=== PATIENT | female | born 1935 | race Caucasian/White ===

== ENCOUNTER 2020-01-17 21:22 | Inpatient (IN) | payer OTHER, MEDICAID ==
[~2020-01-17] VITALS: Ht 165.1 cm; Wt 55.3 kg
[2020-01-17 21:26] VITALS: BP_SYST 118
[2020-01-17] MEDS ORDERED: NACL 0.9% 1,000 ML IV ONE (21:27)
[2020-01-17] MEDS ORDERED: LACT10SO6 PO (21:40)
[2020-01-17] MEDS ORDERED: BRI.2% EACH EYE (21:41)
[2020-01-17] MEDS ORDERED: SPIR25TA6 PO (21:41)
[2020-01-17] MEDS ORDERED: DIGO250T78 PO (21:43)
[2020-01-17] MEDS ORDERED: HYDR100T25 PO (21:44)
[2020-01-17] MEDS ORDERED: CARV25TA55 PO (21:45)
[2020-01-17] MEDS ORDERED: LISI-600 PO (21:46)
[2020-01-17] MEDS ORDERED: APIX2.5T PO (21:49)
[2020-01-17] MEDS ORDERED: OMEP20CA11 PO (21:55)
[2020-01-17] MEDS ORDERED: BISA10SU61 RC (21:56)
[2020-01-17 22:02] LABS: BASOPHILS # (AUTO) 0.1 K/uL (0.0-0.2); BASOPHILS % (AUTO) 0.9 % (0.0-2.0); EOSINOPHILS # (AUTO) 0.1 K/uL (0.0-0.4); EOSINOPHILS % (AUTO) 1.3 % (0.0-4.0); HEMATOCRIT 34.9 % (36-48); HEMOGLOBIN 11.6 g/dL (12.0-16.0); LYMPHOCYTES # (AUTO) 1.4 K/uL (1.0-5.5); LYMPHOCYTES % (AUTO) 15.8 % (20.5-51.5); MEAN CORPUSCULAR HEMOGLOBIN 31 pg (27-31); MEAN CORPUSCULAR HGB CONC 33 % (32-36); MEAN CORPUSCULAR VOLUME 93 fL (79.0-98.0); MONOCYTES # (AUTO) 0.5 K/uL (0.0-1.0); MONOCYTES % (AUTO) 5.6 % (1.7-9.3); NEUTROPHILS # (AUTO) 6.7 K/uL (1.8-7.7); NEUTROPHILS % (AUTO) 76.4 % (40.0-70.0); PLATELET COUNT (AUTO) 335 K/uL (130-430); RED BLOOD CELL COUNT(AUTO) 3.75 MIL/uL (4.2-6.2); RED CELL DISTRIBUTION WIDTH 15.7 % (9.0-15.0); WHITE BLOOD COUNT (AUTO) 8.8 K/uL (4.8-10.8)
[2020-01-17] MEDS ORDERED: MOM PO (22:04)
[2020-01-17 22:16] LABS: ANION GAP 9 (5-15); CALCIUM 8.6 mg/dL (8.4-11.0); CHLORIDE 115 mmol/L (98-107); CREATININE 2.65 mg/dL (0.55-1.30); GLUCOSE 103 mg/dL (70-99); POTASSIUM 3.4 mmol/L (3.5-5.1); SODIUM SERUM 144 mmol/L (136-145); UREA NITROGEN, BLOOD 97 mg/dL (8-21)
[2020-01-17 22:17] LABS: INR 1.1 (0.8-1.2); PROTHROMBIN TIME 11.5 SECS (9.5-12.5)
[2020-01-17 22:20] LABS: ALANINE AMINOTRANSFERASE 22 U/L (12-78); ALBUMIN 2.7 g/dL (3.4-4.8); ASPARTATE AMINOTRANSFERASE 27 U/L (10-37); LIPASE 154 U/L (73-393); TOTAL BILIRUBIN 0.7 mg/dL (0.0-1.0)
[2020-01-17 23:07] LABS: BILIRUBIN,URINE NEGATIVE (NEGATIVE); BLOOD, URINE 2+ (NEGATIVE); COLOR,URINE YELLOW (YELLOW); GLUCOSE,URINE NEGATIVE (NEGATIVE); KETONES,URINE NEGATIVE (NEGATIVE); LEUKOCYTE ESTERASE ,URINE 1+ (NEGATIVE); NITRITE, URINE NEGATIVE (NEGATIVE); PH,URINE 5.5 (5.0-8.0); PROTEIN URINE TRACE (NEGATIVE); UROBILINOGEN,URINE 0.2 (0.2-1.0)
[2020-01-17 23:15] LABS: BACTERIA,URINE MODERATE /HPF (None Seen); CLARITY/URINE HAZY (CLEAR); HYALINE CASTS, URINE 0-10 /LPF (None Seen); URINE AMORPHOUS URATE 2+ /HPF (None Seen)
[2020-01-18] MEDS ORDERED: cefTRIAXone 1 GM in D5W 50 ML IV ONE ×2
[2020-01-18] MEDS ORDERED: cefTRIAXone 1 GM IVPB PREMIX 50 ML IV ONE (00:45)
[2020-01-18] MEDS ORDERED: NACL 0.9% 1,000 ML IV ONE (05:45)
[2020-01-18 06:43] VITALS: BP_SYST 105
[2020-01-18 08:15] VITALS: BP_SYST 105
[2020-01-18] MEDS ORDERED: MILK OF MAGNESIA 30 ML UDC PO PRN (12:00)
[2020-01-18] MEDS ORDERED: BISACODYL 10 MG/SUPPOSITORY RC PRN (12:00)
[2020-01-18] MEDS ORDERED: APIXABAN 2.5 MG TABLET PO ONE (12:15)
[2020-01-18 12:39] VITALS: BP_SYST 141
[2020-01-18] MEDS: LEVOFLOXACIN 250 MG/D5W 50 ML IV SCH (13:53)
[2020-01-18] MEDS: hydrALAZINE HCL 25 MG TABLET PO SCH ×2 (15:00→21:00)
[2020-01-18] MEDS ORDERED: POTASSIUM CHLORIDE 20 MEQ/PKT PACKET PO ONE (15:15)
[2020-01-18] MEDS ORDERED: MEGESTROL ACETATE 400 MG/10 ML UDC PO ONE (15:30)
[2020-01-18] MEDS: D5NS 1,000 ML IV SCH ×2 (16:19→23:57)
[2020-01-18 16:41] VITALS: BP_SYST 112
[2020-01-18] MEDS ORDERED: LISINOPRIL 20 MG TABLET PO SCH (21:00)
[2020-01-18] MEDS: CARVEDILOL 25 MG TABLET (COREG) PO SCH (21:00)
[2020-01-18] MEDS: APIXABAN 2.5 MG TABLET PO SCH (21:00)
[2020-01-18] MEDS: BALSAM PERU/CASTOR OIL 60 GM OINT...G. TP SCH (21:56)
[2020-01-18] MEDS: BRIMONIDINE TARTRATE 0.2% 5 mL EYE DROPS EACH EYE SCH (21:57)
[2020-01-18] MEDS: cefTRIAXone 1 GM in D5W 50 ML IV SCH (23:56)
[2020-01-19 01:17] VITALS: BP_SYST 99
[2020-01-19 06:49] LABS: BASOPHILS # (AUTO) 0.1 K/uL (0.0-0.2); EOSINOPHILS # (AUTO) 0.2 K/uL (0.0-0.4); EOSINOPHILS % (AUTO) 2.3 % (0.0-4.0); HEMATOCRIT 31.6 % (36-48); HEMOGLOBIN 10.3 g/dL (12.0-16.0); LYMPHOCYTES # (AUTO) 1.1 K/uL (1.0-5.5); MEAN CORPUSCULAR HEMOGLOBIN 31 pg (27-31); MEAN CORPUSCULAR HGB CONC 33 % (32-36); MONOCYTES # (AUTO) 0.6 K/uL (0.0-1.0); MONOCYTES % (AUTO) 6.6 % (1.7-9.3); NEUTROPHILS # (AUTO) 6.4 K/uL (1.8-7.7); NEUTROPHILS % (AUTO) 77.1 % (40.0-70.0); PLATELET COUNT (AUTO) 286 K/uL (130-430); RED BLOOD CELL COUNT(AUTO) 3.33 MIL/uL (4.2-6.2); RED CELL DISTRIBUTION WIDTH 16.5 % (9.0-15.0); WHITE BLOOD COUNT (AUTO) 8.3 K/uL (4.8-10.8)
[2020-01-19 07:03] LABS: MEAN CORPUSCULAR VOLUME 94 fL (79.0-98.0)
[2020-01-19 08:33] LABS: ALANINE AMINOTRANSFERASE 19 U/L (12-78); ALBUMIN 2.4 g/dL (3.4-4.8); ANION GAP 12 (5-15); ASPARTATE AMINOTRANSFERASE 22 U/L (10-37); CREATININE 1.32 mg/dL (0.55-1.30); GLUCOSE 130 mg/dL (70-99); PHOSPHORUS 2.4 mg/dL (2.7-4.5); POTASSIUM 3.6 mmol/L (3.5-5.1); SODIUM SERUM 155 mmol/L (136-145); TOTAL BILIRUBIN 0.4 mg/dL (0.0-1.0); UREA NITROGEN, BLOOD 53 mg/dL (8-21)
[2020-01-19 08:35] LABS: CHLORIDE 123 mmol/L (98-107)
[2020-01-19] MEDS: BALSAM PERU/CASTOR OIL 60 GM OINT...G. TP SCH (09:00)
[2020-01-19] MEDS: CARVEDILOL 25 MG TABLET (COREG) PO SCH ×2 (09:00→21:00)
[2020-01-19] MEDS ORDERED: SPIRONOLACTONE 25 MG TABLET (ALDACTONE) PO SCH (09:00)
[2020-01-19] MEDS: LACTULOSE 20 GM/30 ML UDC PO SCH (09:00)
[2020-01-19] MEDS: MEGESTROL ACETATE 400 MG/10 ML UDC PO SCH (09:00)
[2020-01-19] MEDS: hydrALAZINE HCL 25 MG TABLET PO SCH ×3 (09:00→21:00)
[2020-01-19] MEDS: APIXABAN 2.5 MG TABLET PO SCH ×2 (09:00→21:00)
[2020-01-19] MEDS ORDERED: PANTOPRAZOLE SODIUM 40 MG TAB PO SCH (09:00)
[2020-01-19 09:43] VITALS: BP_SYST 158
[2020-01-19] MEDS: D5NS 1,000 ML IV SCH (11:15)
[2020-01-19 12:12] VITALS: BP_SYST 138
[2020-01-19 12:25] VITALS: BP_SYST 158
[2020-01-19] MEDS: LEVOFLOXACIN 250 MG/D5W 50 ML IV SCH (15:30)
[2020-01-19 16:32] VITALS: BP_SYST 130
[2020-01-19] MEDS ORDERED: K PHOS 30 MM in NS 250 ML IV ONE (18:00)
[2020-01-19] MEDS: D5/0.45 NS 1,000 ML IV SCH (18:47)
[2020-01-19 20:00] VITALS: BP_SYST 145
[2020-01-19] MEDS: MUPIROCIN 2% TOPICAL OINTMENT 22 GM NS SCH (21:00)
[2020-01-19] MEDS: BRIMONIDINE TARTRATE 0.2% 5 mL EYE DROPS EACH EYE SCH (21:00)
[2020-01-20] VITALS: BP_SYST 156
[2020-01-20] MEDS: cefTRIAXone 1 GM in D5W 50 ML IV SCH ×2 (01:09→23:22)
[2020-01-20 08:00] VITALS: BP_SYST 113
[2020-01-20] MEDS: hydrALAZINE HCL 25 MG TABLET PO SCH ×3 (09:00→21:00)
[2020-01-20] MEDS: MEGESTROL ACETATE 400 MG/10 ML UDC PO SCH (09:00)
[2020-01-20] MEDS: APIXABAN 2.5 MG TABLET PO SCH (09:00)
[2020-01-20] MEDS: CARVEDILOL 25 MG TABLET (COREG) PO SCH ×2 (09:00→21:00)
[2020-01-20] MEDS: LACTULOSE 20 GM/30 ML UDC PO SCH (09:00)
[2020-01-20] MEDS: DIGOXIN 0.25 MG TABLET PO SCH (09:00)
[2020-01-20] MEDS: D5/0.45 NS 1,000 ML IV SCH ×2 (10:23→20:29)
[2020-01-20] MEDS: MUPIROCIN 2% TOPICAL OINTMENT 22 GM NS SCH ×2 (10:24→21:00)
[2020-01-20] MEDS: BALSAM PERU/CASTOR OIL 60 GM OINT...G. TP SCH (10:28)
[2020-01-20 12:05] VITALS: BP_SYST 159
[2020-01-20] MEDS: LEVOFLOXACIN 250 MG/D5W 50 ML IV SCH (12:17)
[2020-01-20 16:10] VITALS: BP_SYST 159
[2020-01-20 16:27] LABS: ANION GAP 16 (5-15); CALCIUM 8.1 mg/dL (8.4-11.0); CREATININE 1.14 mg/dL (0.55-1.30); GLUCOSE 110 mg/dL (70-99); PHOSPHORUS 2.7 mg/dL (2.7-4.5); UREA NITROGEN, BLOOD 34 mg/dL (8-21)
[2020-01-20 17:13] LABS: SODIUM SERUM 160 mmol/L (136-145)
[2020-01-20 17:14] LABS: CHLORIDE 126 mmol/L (98-107)
[2020-01-20 17:57] LABS: HEMATOCRIT 36.2 % (36-48); HEMOGLOBIN 11.5 g/dL (12.0-16.0); LYMPHOCYTES % (AUTO) 12.1 % (20.5-51.5); MEAN CORPUSCULAR HEMOGLOBIN 31 pg (27-31); MEAN CORPUSCULAR HGB CONC 32 % (32-36); MEAN CORPUSCULAR VOLUME 96 fL (79.0-98.0); MONOCYTES % (AUTO) 7.4 % (1.7-9.3); NEUTROPHILS % (AUTO) 78.2 % (40.0-70.0); PLATELET COUNT (AUTO) 295 K/uL (130-430); RED BLOOD CELL COUNT(AUTO) 3.76 MIL/uL (4.2-6.2); RED CELL DISTRIBUTION WIDTH 16.8 % (9.0-15.0)
[2020-01-20 17:58] LABS: BASOPHILS # (AUTO) 0.1 K/uL (0.0-0.2); BASOPHILS % (AUTO) 0.8 % (0.0-2.0); EOSINOPHILS # (AUTO) 0.2 K/uL (0.0-0.4); EOSINOPHILS % (AUTO) 1.5 % (0.0-4.0); LYMPHOCYTES # (AUTO) 1.2 K/uL (1.0-5.5); MONOCYTES # (AUTO) 0.7 K/uL (0.0-1.0); NEUTROPHILS # (AUTO) 7.8 K/uL (1.8-7.7)
[2020-01-20 19:55] VITALS: BP_SYST 163
[2020-01-20 20:07] VITALS: BP_SYST 163
[2020-01-20] MEDS: BRIMONIDINE TARTRATE 0.2% 5 mL EYE DROPS EACH EYE SCH (21:00)
[2020-01-20 21:22] LABS: URINE SODIUM, RANDOM 46 mmol/L (40-220)
[2020-01-21 00:03] VITALS: BP_SYST 125
[2020-01-21 07:24] LABS: BASOPHILS # (AUTO) 0.1 K/uL (0.0-0.2); BASOPHILS % (AUTO) 0.7 % (0.0-2.0); EOSINOPHILS # (AUTO) 0.1 K/uL (0.0-0.4); EOSINOPHILS % (AUTO) 1.2 % (0.0-4.0); HEMATOCRIT 34.1 % (36-48); LYMPHOCYTES # (AUTO) 1.1 K/uL (1.0-5.5); LYMPHOCYTES % (AUTO) 10.6 % (20.5-51.5); MEAN CORPUSCULAR HEMOGLOBIN 31 pg (27-31); MEAN CORPUSCULAR HGB CONC 32 % (32-36); MEAN CORPUSCULAR VOLUME 94 fL (79.0-98.0); MONOCYTES # (AUTO) 0.5 K/uL (0.0-1.0); MONOCYTES % (AUTO) 5.2 % (1.7-9.3); NEUTROPHILS # (AUTO) 8.3 K/uL (1.8-7.7); NEUTROPHILS % (AUTO) 82.3 % (40.0-70.0); PLATELET COUNT (AUTO) 283 K/uL (130-430); RED BLOOD CELL COUNT(AUTO) 3.61 MIL/uL (4.2-6.2); RED CELL DISTRIBUTION WIDTH 17.4 % (9.0-15.0); WHITE BLOOD COUNT (AUTO) 10.1 K/uL (4.8-10.8)
[2020-01-21 07:36] LABS: ANION GAP 8 (5-15); CALCIUM 8.3 mg/dL (8.4-11.0); CREATININE 1.04 mg/dL (0.55-1.30); GLUCOSE 117 mg/dL (70-99); POTASSIUM 3.9 mmol/L (3.5-5.1); SODIUM SERUM 153 mmol/L (136-145); UREA NITROGEN, BLOOD 25 mg/dL (8-21)
[2020-01-21 07:42] LABS: CHLORIDE 125 mmol/L (98-107); INR 1.3 (0.8-1.2); PROTHROMBIN TIME 12.6 SECS (9.5-12.5)
[2020-01-21 08:16] VITALS: BP_SYST 142
[2020-01-21] MEDS: LACTULOSE 20 GM/30 ML UDC PO SCH (09:00)
[2020-01-21] MEDS: CARVEDILOL 25 MG TABLET (COREG) PO SCH ×2 (09:00→21:00)
[2020-01-21] MEDS: MEGESTROL ACETATE 400 MG/10 ML UDC PO SCH (09:00)
[2020-01-21] MEDS: hydrALAZINE HCL 25 MG TABLET PO SCH ×3 (09:00→21:00)
[2020-01-21] MEDS: D5/0.45 NS 1,000 ML IV SCH ×2 (10:59→21:09)
[2020-01-21] MEDS: BALSAM PERU/CASTOR OIL 60 GM OINT...G. TP SCH (10:59)
[2020-01-21] MEDS: MUPIROCIN 2% TOPICAL OINTMENT 22 GM NS SCH ×2 (11:00→21:11)
[2020-01-21 12:05] VITALS: BP_SYST 160
[2020-01-21] MEDS: LEVOFLOXACIN 250 MG/D5W 50 ML IV SCH (12:39)
[2020-01-21 16:10] VITALS: BP_SYST 143
[2020-01-21 20:00] VITALS: BP_SYST 141
[2020-01-21] MEDS: BRIMONIDINE TARTRATE 0.2% 5 mL EYE DROPS EACH EYE SCH (21:00)
[2020-01-22] MEDS: cefTRIAXone 1 GM in D5W 50 ML IV SCH (00:35)
[2020-01-22 01:22] VITALS: BP_SYST 159
[2020-01-22 08:00] VITALS: BP_SYST 155
[2020-01-22] MEDS: hydrALAZINE HCL 25 MG TABLET PO SCH ×3 (08:49→21:00)
[2020-01-22] MEDS: LACTULOSE 20 GM/30 ML UDC PO SCH (08:50)
[2020-01-22] MEDS: CARVEDILOL 25 MG TABLET (COREG) PO SCH ×2 (08:50→21:00)
[2020-01-22] MEDS: DIGOXIN 0.25 MG TABLET PO SCH (08:51)
[2020-01-22] MEDS: MEGESTROL ACETATE 400 MG/10 ML UDC PO SCH (08:51)
[2020-01-22] MEDS: BALSAM PERU/CASTOR OIL 60 GM OINT...G. TP SCH (08:58)
[2020-01-22] MEDS: MUPIROCIN 2% TOPICAL OINTMENT 22 GM NS SCH ×2 (08:58→21:05)
[2020-01-22] MEDS: D5/0.45 NS 1,000 ML IV SCH (12:40)
[2020-01-22] MEDS: LEVOFLOXACIN 250 MG/D5W 50 ML IV SCH (12:46)
[2020-01-22 12:56] VITALS: BP_SYST 159
[2020-01-22] MEDS: MIDAZOLAM HCL 5 MG/5 ML VIAL ONE ×2 (16:52→16:56)
[2020-01-22] MEDS: fentaNYL CITRATE/PF 100 MCG/2 ML AMP ONE ×2 (16:52→16:57)
[2020-01-22 18:26] VITALS: BP_SYST 154
[2020-01-22] MEDS: BRIMONIDINE TARTRATE 0.2% 5 mL EYE DROPS EACH EYE SCH (21:05)
[2020-01-23 00:12] VITALS: BP_SYST 130
[2020-01-23] MEDS: cefTRIAXone 1 GM in D5W 50 ML IV SCH (01:57)
[2020-01-23] MEDS: D5/0.45 NS 1,000 ML IV SCH ×3 (01:57→21:43)
[2020-01-23 06:50] LABS: BASOPHILS # (AUTO) 0.1 K/uL (0.0-0.2); BASOPHILS % (AUTO) 0.6 % (0.0-2.0); EOSINOPHILS # (AUTO) 0.1 K/uL (0.0-0.4); HEMATOCRIT 36.7 % (36-48); LYMPHOCYTES # (AUTO) 1.1 K/uL (1.0-5.5); LYMPHOCYTES % (AUTO) 9.1 % (20.5-51.5); MEAN CORPUSCULAR HEMOGLOBIN 30 pg (27-31); MEAN CORPUSCULAR HGB CONC 33 % (32-36); MEAN CORPUSCULAR VOLUME 92 fL (79.0-98.0); MONOCYTES # (AUTO) 0.5 K/uL (0.0-1.0); MONOCYTES % (AUTO) 3.9 % (1.7-9.3); NEUTROPHILS # (AUTO) 10.6 K/uL (1.8-7.7); NEUTROPHILS % (AUTO) 85.4 % (40.0-70.0); PLATELET COUNT (AUTO) 191 K/uL (130-430); RED BLOOD CELL COUNT(AUTO) 3.97 MIL/uL (4.2-6.2); RED CELL DISTRIBUTION WIDTH 16.6 % (9.0-15.0); WHITE BLOOD COUNT (AUTO) 12.4 K/uL (4.8-10.8)
[2020-01-23 07:00] LABS: ANION GAP 13 (5-15); CALCIUM 7.8 mg/dL (8.4-11.0); CREATININE 0.94 mg/dL (0.55-1.30); GLUCOSE 109 mg/dL (70-99); SODIUM SERUM 152 mmol/L (136-145); UREA NITROGEN, BLOOD 13 mg/dL (8-21)
[2020-01-23 08:00] VITALS: BP_SYST 174
[2020-01-23 08:03] LABS: POTASSIUM 2.9 mmol/L (3.5-5.1)
[2020-01-23 08:04] LABS: CHLORIDE 120 mmol/L (98-107)
[2020-01-23] MEDS ORDERED: POTASSIUM CHLORIDE 20 MEQ TAB.PRT.SR GT ONE (09:00)
[2020-01-23] MEDS ORDERED: KCL 20 mEq in 100 mL (PREMIX) 100 ML IV ONE (09:00)
[2020-01-23] MEDS: MEGESTROL ACETATE 400 MG/10 ML UDC PO SCH (09:46)
[2020-01-23] MEDS: LACTULOSE 20 GM/30 ML UDC PO SCH (09:47)
[2020-01-23] MEDS: CARVEDILOL 25 MG TABLET (COREG) PO SCH ×2 (09:50→21:00)
[2020-01-23] MEDS: hydrALAZINE HCL 25 MG TABLET PO SCH ×3 (09:51→21:00)
[2020-01-23] MEDS: MUPIROCIN 2% TOPICAL OINTMENT 22 GM NS SCH ×2 (09:51→21:28)
[2020-01-23] MEDS: BALSAM PERU/CASTOR OIL 60 GM OINT...G. TP SCH (09:52)
[2020-01-23] MEDS ORDERED: SPIRONOLACTONE 25 MG TABLET (ALDACTONE) PO ONE (10:45)
[2020-01-23] MEDS ORDERED: LOSARTAN POTASSIUM 50 MG TABLET (COZAAR) PO ONE (10:45)
[2020-01-23 13:18] VITALS: BP_SYST 94
[2020-01-23] MEDS: LEVOFLOXACIN 250 MG/D5W 50 ML IV SCH (13:41)
[2020-01-23 16:08] VITALS: BP_SYST 121
[2020-01-23 19:00] VITALS: BP_SYST 129
[2020-01-23 20:00] VITALS: BP_SYST 129
[2020-01-23] MEDS: BRIMONIDINE TARTRATE 0.2% 5 mL EYE DROPS EACH EYE SCH (21:28)
[2020-01-24 00:06] VITALS: BP_SYST 117
[2020-01-24] MEDS: cefTRIAXone 1 GM in D5W 50 ML IV SCH (00:11)
[2020-01-24 06:27] LABS: BASOPHILS % (AUTO) 0.4 % (0.0-2.0); EOSINOPHILS # (AUTO) 0.1 K/uL (0.0-0.4); EOSINOPHILS % (AUTO) 1.6 % (0.0-4.0); HEMATOCRIT 31.4 % (36-48); HEMOGLOBIN 10.4 g/dL (12.0-16.0); LYMPHOCYTES # (AUTO) 1.4 K/uL (1.0-5.5); LYMPHOCYTES % (AUTO) 14.7 % (20.5-51.5); MEAN CORPUSCULAR HEMOGLOBIN 31 pg (27-31); MEAN CORPUSCULAR HGB CONC 33 % (32-36); MEAN CORPUSCULAR VOLUME 93 fL (79.0-98.0); MONOCYTES # (AUTO) 0.5 K/uL (0.0-1.0); MONOCYTES % (AUTO) 4.9 % (1.7-9.3); NEUTROPHILS # (AUTO) 7.3 K/uL (1.8-7.7); NEUTROPHILS % (AUTO) 78.4 % (40.0-70.0); PLATELET COUNT (AUTO) 205 K/uL (130-430); RED BLOOD CELL COUNT(AUTO) 3.37 MIL/uL (4.2-6.2); RED CELL DISTRIBUTION WIDTH 16.8 % (9.0-15.0); WHITE BLOOD COUNT (AUTO) 9.3 K/uL (4.8-10.8)
[2020-01-24 07:26] LABS: ALANINE AMINOTRANSFERASE 17 U/L (12-78); ALBUMIN 1.8 g/dL (3.4-4.8); ANION GAP 10 (5-15); ASPARTATE AMINOTRANSFERASE 18 U/L (10-37); CALCIUM 7.5 mg/dL (8.4-11.0); CHLORIDE 118 mmol/L (98-107); CREATININE 0.99 mg/dL (0.55-1.30); GLUCOSE 96 mg/dL (70-99); SODIUM SERUM 149 mmol/L (136-145); TOTAL BILIRUBIN 0.2 mg/dL (0.0-1.0); UREA NITROGEN, BLOOD 13 mg/dL (8-21)
[2020-01-24 07:31] LABS: POTASSIUM 2.9 mmol/L (3.5-5.1)
[2020-01-24 08:00] VITALS: BP_SYST 100
[2020-01-24] MEDS: hydrALAZINE HCL 25 MG TABLET PO SCH ×3 (09:00→21:46)
[2020-01-24] MEDS: CARVEDILOL 25 MG TABLET (COREG) PO SCH ×2 (09:00→21:47)
[2020-01-24] MEDS: SPIRONOLACTONE 25 MG TABLET (ALDACTONE) PO SCH (09:00)
[2020-01-24] MEDS: LACTULOSE 20 GM/30 ML UDC PO SCH (09:00)
[2020-01-24] MEDS: MUPIROCIN 2% TOPICAL OINTMENT 22 GM NS SCH (09:00)
[2020-01-24] MEDS: LOSARTAN POTASSIUM 50 MG TABLET (COZAAR) PO SCH (09:00)
[2020-01-24] MEDS: MEGESTROL ACETATE 400 MG/10 ML UDC PO SCH (10:11)
[2020-01-24] MEDS: DIGOXIN 0.25 MG TABLET PO SCH (10:12)
[2020-01-24] MEDS: BALSAM PERU/CASTOR OIL 60 GM OINT...G. TP SCH (10:12)
[2020-01-24] MEDS ORDERED: POTASSIUM CHLORIDE 20 MEQ in NS 250 ML IV ONE (11:15)
[2020-01-24] MEDS ORDERED: POTASSIUM CHLORIDE 20 MEQ/PKT PACKET PO ONE (11:15)
[2020-01-24] MEDS: D5/0.45 NS 1,000 ML IV SCH (11:30)
[2020-01-24 12:00] VITALS: BP_SYST 98
[2020-01-24] MEDS: LEVOFLOXACIN 250 MG/D5W 50 ML IV SCH (13:00)
[2020-01-24] MEDS ORDERED: MAGNESIUM SULFATE 50 ML IV ONE (13:15)
[2020-01-24 16:00] VITALS: BP_SYST 100
[2020-01-24] MEDS ORDERED: HYDROcodone/ACETAMIN 5-325 MG TAB (NORCO/ VICODIN) GT PRN (21:15)
[2020-01-24] MEDS ORDERED: ACETAMINOPHEN 650 MG/20.3 ML UDC GT PRN (21:15)
[2020-01-24 21:40] VITALS: BP_SYST 131
[2020-01-24] MEDS: NITROFURANTOIN MONOHYD/M-CRYST 100 MG CAPSULE PO SCH (21:41)
[2020-01-24] MEDS: BRIMONIDINE TARTRATE 0.2% 5 mL EYE DROPS EACH EYE SCH (21:43)
[2020-01-25] MEDS: cefTRIAXone 1 GM in D5W 50 ML IV SCH (00:30)
[2020-01-25 02:35] VITALS: BP_SYST 98
[2020-01-25 07:17] LABS: ANION GAP 9 (5-15); CALCIUM 7.4 mg/dL (8.4-11.0); CHLORIDE 117 mmol/L (98-107); CREATININE 0.99 mg/dL (0.55-1.30); GLUCOSE 116 mg/dL (70-99); POTASSIUM 3.6 mmol/L (3.5-5.1); SODIUM SERUM 145 mmol/L (136-145); UREA NITROGEN, BLOOD 14 mg/dL (8-21)
[2020-01-25 08:00] VITALS: BP_SYST 153
[2020-01-25] MEDS: NITROFURANTOIN MONOHYD/M-CRYST 100 MG CAPSULE PO SCH ×2 (09:04→21:45)
[2020-01-25] MEDS: MEGESTROL ACETATE 400 MG/10 ML UDC PO SCH (09:04)
[2020-01-25] MEDS: D5/0.45 NS 1,000 ML IV SCH ×2 (09:04→22:07)
[2020-01-25] MEDS: LACTULOSE 20 GM/30 ML UDC PO SCH (09:04)
[2020-01-25] MEDS: CARVEDILOL 25 MG TABLET (COREG) PO SCH ×2 (09:06→21:50)
[2020-01-25] MEDS: hydrALAZINE HCL 25 MG TABLET PO SCH ×3 (09:07→21:51)
[2020-01-25] MEDS: LOSARTAN POTASSIUM 50 MG TABLET (COZAAR) PO SCH (09:07)
[2020-01-25] MEDS: SPIRONOLACTONE 25 MG TABLET (ALDACTONE) PO SCH (09:08)
[2020-01-25] MEDS: BALSAM PERU/CASTOR OIL 60 GM OINT...G. TP SCH (09:09)
[2020-01-25 12:00] VITALS: BP_SYST 129
[2020-01-25 16:44] VITALS: BP_SYST 102
[2020-01-25 21:00] VITALS: BP_SYST 148
[2020-01-25] MEDS: BRIMONIDINE TARTRATE 0.2% 5 mL EYE DROPS EACH EYE SCH (21:51)
[2020-01-25] MEDS ORDERED: POTASSIUM CHLORIDE 20 MEQ/PKT PACKET GT ONE (23:00)
[2020-01-25] MEDS: MAGNESIUM OXIDE 400 MG TABLET GT SCH (23:00)
[2020-01-26] MEDS: MAGNESIUM OXIDE 400 MG TABLET GT SCH ×2 (00:28→10:55)
[2020-01-26 01:18] VITALS: BP_SYST 108
[2020-01-26 08:00] VITALS: BP_SYST 100
[2020-01-26] MEDS: CARVEDILOL 25 MG TABLET (COREG) PO SCH (10:44)
[2020-01-26] MEDS: LOSARTAN POTASSIUM 50 MG TABLET (COZAAR) PO SCH (10:45)
[2020-01-26] MEDS: DIGOXIN 0.25 MG TABLET PO SCH (10:45)
[2020-01-26] MEDS: hydrALAZINE HCL 25 MG TABLET PO SCH (10:46)
[2020-01-26] MEDS: LACTULOSE 20 GM/30 ML UDC PO SCH (10:48)
[2020-01-26] MEDS: MEGESTROL ACETATE 400 MG/10 ML UDC PO SCH (10:48)
[2020-01-26] MEDS: BALSAM PERU/CASTOR OIL 60 GM OINT...G. TP SCH (10:49)
[2020-01-26] MEDS: NITROFURANTOIN MONOHYD/M-CRYST 100 MG CAPSULE PO SCH (10:53)
[2020-01-26] MEDS: SPIRONOLACTONE 25 MG TABLET (ALDACTONE) PO SCH (10:55)
[2020-01-26 12:39] VITALS: BP_SYST 100
[2020-01-26 15:26] VITALS: BP_SYST 104
[2020-01-26 16:00] VITALS: BP_SYST 104
== END 2020-01-26 16:08 | DRG 871 ==
LOC: SED 21:22 → SMU 01-18 05:46
PROVIDERS: ADMIT Internal Medicine Infectious Disease; ATTEND Internal Medicine Infectious Disease
PROC: 0DB68ZX Excision of Stomach, Via Natural or Artificial Opening Endoscopic, Diagnostic (ICD-10-PCS; 2020-01-22)
PROC: 0DH63UZ Insertion of Feeding Device into Stomach, Percutaneous Approach (ICD-10-PCS; principal; 2020-01-22 16:00)
DX: A41.81 Sepsis due to Enterococcus (principal); E43 Unspecified severe protein-calorie malnutrition; G92 Toxic encephalopathy; E87.2 Acidosis; I13.0 Hypertensive heart and chronic kidney disease with heart failure and stage 1 through stage 4 chronic kidney disease, or unspecified chronic kidney disease; I69.354 Hemiplegia and hemiparesis following cerebral infarction affecting left non-dominant side; N17.9 Acute kidney failure, unspecified; I50.42 Chronic combined systolic (congestive) and diastolic (congestive) heart failure; N39.0 Urinary tract infection, site not specified; N18.9 Chronic kidney disease, unspecified; D64.9 Anemia, unspecified; E78.5 Hyperlipidemia, unspecified; E86.0 Dehydration; E87.6 Hypokalemia; F03.90 Unspecified dementia, unspecified severity, without behavioral disturbance, psychotic disturbance, mood disturbance, and anxiety; H40.9 Unspecified glaucoma; H35.30 Unspecified macular degeneration; I48.0 Paroxysmal atrial fibrillation; K21.9 Gastro-esophageal reflux disease without esophagitis; K29.60 Other gastritis without bleeding; K29.80 Duodenitis without bleeding; N20.0 Calculus of kidney; R13.10 Dysphagia, unspecified; L89.152 Pressure ulcer of sacral region, stage 2; R62.7 Adult failure to thrive; Z22.322 Carrier or suspected carrier of Methicillin resistant Staphylococcus aureus; Z79.01 Long term (current) use of anticoagulants; Z03.818 Encounter for observation for suspected exposure to other biological agents ruled out; Z86.74 Personal history of sudden cardiac arrest; Z87.891 Personal history of nicotine dependence; Z79.899 Other long term (current) drug therapy; Z68.20 Body mass index [BMI] 20.0-20.9, adult; Z90.49 Acquired absence of other specified parts of digestive tract
CPT/HCPCS: 36415; 43246; 71045; 74018; 80048; 80053; 81000-TC; 82570-TC; 83690-TC; 83735-TC; 84100-TC; 84302-TC; 84550-TC; 85025; 85610-TC; 85730-TC; 86403; 87040-TC; 87081; 87086; 87186-TC; 88305; 88312; 88313; 92610-GN; 93005; 96365; 99285; J0696; J1956; J2250; J3010; J3475; J3480; J7030; J7042; J7050; J7060; U0003-CS